=== PATIENT | female | born 1980 | race Caucasian/White ===

== ENCOUNTER 2016-09-06 11:49 | Emergency (ER) | payer SELFPAY ==
[~2016-09-06] VITALS: Ht 157.5 cm; Wt 64.3 kg
[2016-09-06 11:51] VITALS: BP 122/87; PULSE 83; RESP 16; TEMP 97.8; O2SAT 100
[2016-09-06] MEDS ORDERED: TETANUS/DIPHTHERIA TOXOID ADULT 0.5 ML VIAL IM ONE (12:15)
[2016-09-06] MEDS ORDERED: CLINDAMYCIN PHOS 600 MG/4 ML VIAL IM ONE (12:15)
[2016-09-06] MEDS ORDERED: LIDOCAINE 1%/EPINEPHrine 1:100,000 SOLN 20 ML VIAL INFIL ONE (12:15)
[2016-09-06] MEDS ORDERED: SODIUM CHLORIDE 0.9% FLUSH 10 ML FLUSH IVF PRN (12:15)
--- NOTE | 2016-09-06 12:29 | PD ---
HPI Chief Complaint: Skin Problem Time Seen by Provider: 12:16 Travel History International Travel<30 days: No Contact w/Intl Traveler<30days: No Traveled to known affect area: No History of Present Illness HPI 36-year-old female presents to the emergency room for evaluation of bilateral abscesses on her upper extremities. Patient is an IV drug user and states she missed her vein several times. She usually uses Lesli but is currently using meth and injects "anything you can dissolve in water." She states that this is from several different attempts at different times. The largest abscess on her left forearm is the most recent and most painful. She reports associated sharp substernal chest pain that occurred 2 days ago and lasted all day. There is no correlation with activity. Patient denies fever, chills, nausea, and vomiting. She believes her last tetanus was 5 or more years ago. Patient denies any chronic medical conditions or daily medications. PFSH Past Medical History ?: Not Past Surgical History Appendectomy: Yes Other Surgery: Yes (BACK X2) Social History Alcohol Use: Yes (SOCIAL) Tobacco Use: Yes Substance Use: Yes (POLYSUBSTANCE, IV) Allergies-Medications (Allergen,Severity, Reaction): Coded Allergies: Flagyl (Verified Allergy, Mild, Rash, 09/06/16) Reported Meds & Prescriptions Reported Meds & Active Scripts Active Keflex (Cephalexin) 250 Mg Cap 500 Mg PO Q6H 10 Days Clindamycin (Clindamycin HCl) 150 Mg Cap 300 Mg PO Q6H 10 Days Review of Systems Except as stated in HPI: all other systems reviewed are Neg Physical Exam Narrative GENERAL: Well-nourished, well-developed female in no acute distress. Afebrile. Ambulatory. SKIN: Focused skin assessment warm/dry. Multiple injection sites and upper extremities. There is are several, variable indurated areas in the bilateral upper extremities which measure about 2-4 cm in diameter. The abscess in the left medial forearm is fluctuant but there is no pointing or drainage. There is a zone of inflammation around it but no lymphangitis. HEAD: Normocephalic. EYES: No scleral icterus. No injection or drainage. NECK: Supple, trachea midline. No JVD or lymphadenopathy. CARDIOVASCULAR: Regular rate and rhythm without murmurs, gallops, or rubs. RESPIRATORY: Breath sounds equal bilaterally. No accessory muscle use. PSYCHIATRIC: No delusional thought processes. No hallucinations. Data Data Last Documented VS Vital Signs Date Time Temp Pulse Resp B/P Pulse Ox O2 Delivery O2 Flow Rate FiO2 09/06/16 11:51 97.8 83 16 122/87 100 Orders Complete Blood Count With Diff (09/06/16 12:07) Blood Culture (09/06/16 12:07) Wound Culture And Gram Stain (09/06/16 12:07) Iv Access Insert/Monitor (09/06/16 12:07) Lidocai-Epi 1%-1:100,000 Inj (Xylocaine- (09/06/16 12:15) Sodium Chloride 0.9% Flush (Ns Flush) (09/06/16 12:15) Clindamycin Inj (Cleocin Inj) (09/06/16 12:15) Tetanus/Diphtheria Tox Adult (Tetanus/Di (09/06/16 12:15) Electrocardiogram (09/06/16 12:07) Ckmb (Isoenzyme) Profile (09/06/16 12:07) Comprehensive Metabolic Panel (09/06/16 12:07) Prothrombin Time / Inr (Pt) (09/06/16 12:07) Act Partial Throm Time (Ptt) (09/06/16 12:07) Troponin I (09/06/16 12:07) Lactic Acid Sepsis Protocol (09/06/16 12:07) Labs Laboratory Tests Test 09/06/16 12:20 White Blood Count 5.8 TH/MM3 Red Blood Count 4.02 MIL/MM3 Hemoglobin 12.9 GM/DL Hematocrit 37.0 % Mean Corpuscular Volume 91.8 FL Mean Corpuscular Hemoglobin 32.0 PG Mean Corpuscular Hemoglobin 34.9 % Concent Red Cell Distribution Width 11.9 % Platelet Count 263 TH/MM3 Mean Platelet Volume 7.1 FL Neutrophils (%) (Auto) 58.9 % Lymphocytes (%) (Auto) 28.7 % Monocytes (%) (Auto) 9.0 % Eosinophils (%) (Auto) 2.1 % Basophils (%) (Auto) 1.3 % Neutrophils # (Auto) 3.4 TH/MM3 Lymphocytes # (Auto) 1.7 TH/MM3 Monocytes # (Auto) 0.5 TH/MM3 Eosinophils # (Auto) 0.1 TH/MM3 Basophils # (Auto) 0.1 TH/MM3 CBC Comment DIFF FINAL Differential Comment Prothrombin Time 10.5 SEC Prothromb Time International 1.0 RATIO Ratio Activated Partial 24.5 SEC Thromboplast Time Sodium Level 141 MEQ/L Potassium Level 3.8 MEQ/L Chloride Level 106 MEQ/L Carbon Dioxide Level 28.3 MEQ/L Anion Gap 7 MEQ/L Blood Urea Nitrogen 10 MG/DL Creatinine 0.73 MG/DL Estimat Glomerular Filtration 91 ML/MIN Rate Random Glucose 106 MG/DL Lactic Acid Level 1.4 mmol/L Calcium Level 8.6 MG/DL Total Bilirubin 0.4 MG/DL Aspartate Amino Transf 17 U/L (AST/SGOT) Alanine Aminotransferase 17 U/L (ALT/SGPT) Alkaline Phosphatase 67 U/L Total Creatine Kinase 52 U/L Troponin I LESS THAN 0.02 NG/ML Total Protein 7.2 GM/DL Albumin 3.5 GM/DL [facility] Medical Decision Making Medical Screen Exam Complete: Yes Emergency Medical Condition: Yes Medical Record Reviewed: Yes Differential Diagnosis Vegetation versus sepsis versus IV drug use versus abscess versus cellulitis Narrative Course 36-year-old female presents to the emergency room for evaluation of multiple abscesses in her bilateral upper extremities. Patient is an IV drug user, last used 2 days ago. She had associated chest pain 2 days ago. She is afebrile and well-appearing in the emergency room. Vital signs stable. Physical exam reveals multiple areas of induration and bilateral extremities. The abscess in the left upper extremity is the most fluctuant, erythematous, and painful. The abscess will be drained, see procedure note for details. IV access was difficult to establish. Basic labs drawn. Patient updated on tetanus and given IM clindamycin. EKG shows sinus rhythm with a rate of 77, sinus, signed off by my attending physician. CBC, CMP, lactic acid, and cardiac enzymes are negative. I have low suspicion for cardiac etiology for pain. Differential includes anxiety or drug reaction. I spoke to my attending physician, who agrees is stable for outpatient antibiotic trial. She was discharged with clindamycin and keflex and told to follow up or return as needed. She understands and agrees to plan. Procedures Procedure Narrative INCISION AND DRAINAGE OF ABSCESS: The area was prepped and was sterilely draped. A subcutaneous wheal of 1% lidocaine with epinephrine with a total number 2 mL was used to anesthetize the area properly. A number 11 scalpel was used to make a 1 cm incision across the area of the abscess. The abscess was drained, complex loculations were broken down, and irrigated with normal saline. Cultures were obtained. Sterile dressing applied. Diagnosis Primary Impression: Abscess of left upper arm and forearm Referrals: Primary Care Physician Patient Instructions: Abscess (ED), Abscess Incision and Drainage (ED), General Instructions Additional Instructions: Rest and drink plenty of fluids. Take clindamycin as directed, until gone. Take Keflex as directed, until gone. Follow up with a primary care physician. Return to emergency room for worsening symptoms, as discussed. Med/Other Pt SpecificInfo: Prescription(s) given Scripts Cephalexin (Keflex)250 Mg [id number] Mg PO Q6H 10 Days Ref 0 Prov:Shanell Knox MD 09/06/16 Clindamycin 150 Mg [id number] Mg PO Q6H 10 Days Ref 0 Prov:Shanell Knox MD 09/06/16 Disposition: 01 DISCHARGE HOME Condition: Stable Glenna Merino September 06, 2016 12:28
[2016-09-06 12:36] LABS: AUTOMATED NEUTROPHIL # 3.4 TH/MM3 (1.8-7.7); BASOPHIL # 0.1 TH/MM3 (0-0.2); BASOPHIL % 1.3 % (0.0-2.0); EOSINOPHIL # 0.1 TH/MM3 (0-0.4); EOSINOPHIL % 2.1 % (0.0-4.0); HEMO FLAGS DIFF FINAL; LYMPH % 28.7 % (9.0-44.0); LYMPHOCYTE # 1.7 TH/MM3 (1.0-4.8); MEAN CELL VOLUME 91.8 FL (80.0-100.0); MEAN CORPUSCULAR HGB CONC 34.9 % (32.0-36.0); NEUT % 58.9 % (16.0-70.0); PLATELET COUNT 263 TH/MM3 (150-450); RED BLOOD COUNT 4.02 MIL/MM3 (4.00-5.30); RED CELL DISTRIBUTION WIDTH 11.9 % (11.6-17.2); WHITE BLOOD COUNT 5.8 TH/MM3 (4.0-11.0)
[2016-09-06 12:44] LABS: CHLORIDE 106 MEQ/L (98-107); SODIUM (NA) 141 MEQ/L (136-145)
[2016-09-06 12:45] LABS: POTASSIUM 3.8 MEQ/L (3.5-5.1)
[2016-09-06 12:48] LABS: ANION GAP 7 MEQ/L (5-15); BICARBONATE 28.3 MEQ/L (21.0-32.0); BLOOD UREA NITROGEN 10 MG/DL (7-18)
[2016-09-06 12:50] LABS: APTT (PATIENT) 24.5 SEC (24.3-30.1); PROTHROMBIN TIME - PATIENT 10.5 SEC (9.8-11.6)
[2016-09-06 12:51] LABS: ALT (GPT) 17 U/L (10-53); AST (GOT) 17 U/L (15-37); GLOMERULAR FILTRATION RATE 91 ML/MIN (>89)
[2016-09-06 12:52] LABS: TOTAL BILIRUBIN ADULT 0.4 MG/DL (0.2-1.0)
[2016-09-06 12:54] LABS: ALKALINE PHOSPHATASE 67 U/L (45-117)
[2016-09-06 12:56] LABS: CREATINE KINASE 52 U/L (26-192)
[2016-09-06] MEDS ORDERED: CLIN1CAP5 PO (13:17)
[2016-09-06] MEDS ORDERED: CEPH-459 PO (13:17)
[2016-09-06 13:40] VITALS: BP 124/84
--- NOTE | 2016-09-07 16:25 | EKG ---
Date Performed: 09/06/2016 Time Performed: 12:15:38 PTAGE: 36 years EKG: Within normal limits NO PREVIOUS TRACING DOCTOR: Tru Perla Interpretating Date/Time 09/07/2016 16:24:14
== END 2016-09-06 13:41 | disposition home or self-care (01) ==
LOC: EDBD → PHEFT 11:49
DX: L02.412 Cutaneous abscess of left axilla (principal); L02.414 Cutaneous abscess of left upper limb; R07.89 Other chest pain; F15.10 Other stimulant abuse, uncomplicated; Z23 Encounter for immunization; Z72.0 Tobacco use; Z79.899 Other long term (current) drug therapy
CPT/HCPCS: 10060; 80053; 82550; 83605; 84484; 85025; 85610; 85730; 87040; 87070; 90471; 90714; 93005; 96372